=== PATIENT | female | born 1975 | race Caucasian/White ===

== ENCOUNTER → 2023-11-15 14:01 | Outpatient (REF) | payer OTHER, SELFPAY | LOC: WDC 14:01 | PROVIDERS: ATTENDING PHYSICIAN Physician Assistant Medical | DX: Z12.31 Encounter for screening mammogram for malignant neoplasm of breast (principal) | CPT/HCPCS: 77063; 77067 ==

== ENCOUNTER → 2024-12-07 19:18 | Outpatient (REF) | payer BC, SELFPAY | LOC: WDC 19:18 | PROVIDERS: ATTENDING PHYSICIAN Family Medicine | DX: Z12.31 Encounter for screening mammogram for malignant neoplasm of breast (principal) | CPT/HCPCS: 77063; 77067 ==

== ENCOUNTER → 2025-04-13 13:02 | Outpatient (REF) | payer BC, SELFPAY | LOC: RAD 13:02 | PROVIDERS: ATTENDING PHYSICIAN Physician Assistant Medical | DX: R10.32 Left lower quadrant pain (principal) | CPT/HCPCS: 74178; Q9967 ==

== ENCOUNTER → 2025-04-25 14:27 | Outpatient (REF) | payer BC, SELFPAY | LOC: HWRAD 14:27 | PROVIDERS: ATTENDING PHYSICIAN Physician Assistant Medical | DX: R10.2 Pelvic and perineal pain (principal) | CPT/HCPCS: 76830; 76856 ==